=== PATIENT | female | born 1950 | race Caucasian/White ===

== ENCOUNTER 2017-02-03 07:48 | Observation (INO) | payer BC ==
[2017-02-03] VITALS (10 sets, daily range): BP systolic 131–196; BP diastolic 57–90; PULSE 81–104; RESP 16–18; TEMP 97.7–99.3; O2SAT 93–97
[~2017-02-03] VITALS: Ht 162.6 cm; Wt 91.0 kg
[2017-02-03] MEDS ORDERED: SODIUM CHLOR 0.9% 1000 ML INJ 1,000 ML IV SCH (08:07)
--- NOTE | 2017-02-03 08:10 | PD ---
HPI Chief Complaint: Abdominal Pain Time Seen by Provider: 08:03 Travel History International Travel<30 days: No Contact w/Intl Traveler<30days: No Traveled to known affect area: No History of Present Illness HPI 66-year-old female complains of pain in the right lower abdomen. It started about 3 hours ago while she was asleep. It's constant. She states is worse when she pushes in and then lets go. No fever nausea vomiting or diarrhea. Evidently a similar pain occurred within the last few weeks however it was even lower in the area of the right abdomen/upper thigh. No urinary complaints. She reports a history of a gallbladder calculus been no history of cholecystitis. She reports a diagnosis of gastritis as well having been made just recently. Severity moderate. Pain woke her up from sleep. PFSH Past Medical History Hx Anticoagulant Therapy: Yes (ASA DAILY) Cardiovascular Problems: Yes (BYPASS, HTN, CHOL) Diabetes: Yes ?: Not Social History Tobacco Use: No Allergies-Medications (Allergen,Severity, Reaction): Coded Allergies: Sulfa (Sulfonamide Antibiotics) (Verified Allergy, Severe, 02/03/17) Reported Meds & Prescriptions Reported Meds & Active Scripts Active Reported Amlodipine (Amlodipine Besylate) 2.5 Mg Tab 2.5 Mg PO DAILY Amoxicillin 500 Mg Cap 500 Mg PO DIRECTED PRN Omeprazole 40 Mg Cap 40 Mg PO DAILY Aspirin 325 Mg Tab 325 Mg PO DAILY Tramadol (Tramadol HCl) 50 Mg Tab 50 Mg PO QID PRN Losartan (Losartan Potassium) 100 Mg Tab 100 Mg PO DAILY Paxil (Paroxetine HCl) 30 Mg Tab 40 Mg PO HS Metformin (Metformin HCl) 1,000 Mg Tab 1,000 Mg PO HS With a meal Trilipix (Choline Fenofibrate DR) 135 Mg Capdr 135 Mg PO DAILY Carvedilol 25 Mg Tab 25 Mg PO BID Atorvastatin (Atorvastatin Calcium) 40 Mg Tab 40 Mg PO HS Gabapentin 600 Mg Tab 600 Mg PO TID Alprazolam 0.5 Mg Tab 0.5 Mg PO BID PRN Trazodone (Trazodone HCl) 100 Mg Tablet 100 Mg PO HS PRN Duloxetine DR (Duloxetine HCl) 60 Mg Capdr 60 Mg PO BID Review of Systems Except as stated in HPI: all other systems reviewed are Neg General / Constitutional: No: Fever Physical Exam Narrative GENERAL: 66-year-old female pleasant well-nourished well-developed mild distress secondary to pain SKIN: Focused skin assessment warm/dry. HEAD: Atraumatic. Normocephalic. EYES: Pupils equal and round. No scleral icterus. No injection or drainage. ENT: No nasal bleeding or discharge. Mucous membranes pink and moist. NECK: Trachea midline. No JVD. CARDIOVASCULAR: Regular rate and rhythm. No murmur appreciated. RESPIRATORY: No accessory muscle use. Clear to auscultation. Breath sounds equal bilaterally. GASTROINTESTINAL: Soft. There is tenderness in the right abdomen. MUSCULOSKELETAL: No obvious deformities. No clubbing. No cyanosis. No edema. NEUROLOGICAL: Awake and alert. No obvious cranial nerve deficits. Motor grossly within normal limits. Normal speech. PSYCHIATRIC: Appropriate mood and affect; insight and judgment normal. Data Data Last Documented VS Vital Signs Date Time Temp Pulse Resp B/P (MAP) Pulse Ox O2 Delivery O2 Flow Rate FiO2 02/03/17 09:15 81 16 149/60 (89) 95 Room Air 02/03/17 07:57 97.7 Vital signs reviewed Orders Orders Urinalysis - C+S If Indicated (02/03/17 07:55) Complete Blood Count With Diff (02/03/17 08:07) Comprehensive Metabolic Panel (02/03/17 08:07) Lipase (02/03/17 08:07) Ct Abd/Pel W Iv Contrast(Rout) (02/03/17 08:07) Iv Access Insert/Monitor (02/03/17 08:07) Ecg Monitoring (02/03/17 08:07) Oximetry (02/03/17 08:07) Ondansetron Inj (Zofran Inj) (02/03/17 08:15) Sodium Chlor 0.9% 1000 Ml Inj (Ns 1000 M (02/03/17 08:07) Sodium Chloride 0.9% Flush (Ns Flush) (02/03/17 08:15) Dicyclomine Inj (Bentyl Inj) (02/03/17 08:15) Al-Mag Hy-Si 40-40-4 Mg/Ml Liq (Mag-Al P (02/03/17 08:15) Lidocaine 2% Viscous (Xylocaine 2% Visco (02/03/17 08:15) Iohexol 350 Inj (Omnipaque 350 Inj) (02/03/17 09:39) Piperacil-Tazo 4.5 Gm Premix (Zosyn 4.5 (02/03/17 10:30) Sodium Chlor 0.9% 1000 Ml Inj (Ns 1000 M (02/03/17 10:30) Admit Order (Ed Use Only) (02/03/17 ) Equipment Records Supervisor / Telemetry NEHAL.Q8H (02/03/17 10:17) Vital Signs (Adult) Q4H (02/03/17 10:17) Diet Npo (02/03/17 Lunch) Activity Oob With Assistance (02/03/17 10:17) Notify Dr: Other (02/03/17 10:17) Morphine Inj (Morphine Inj) (02/03/17 10:30) Ondansetron Inj (Zofran Inj) (02/03/17 10:30) Labs Laboratory Tests Test 02/03/17 08:54 White Blood Count 8.4 TH/MM3 Red Blood Count 3.99 MIL/MM3 Hemoglobin 11.6 GM/DL Hematocrit 35.4 % Mean Corpuscular Volume 88.6 FL Mean Corpuscular Hemoglobin 29.0 PG Mean Corpuscular Hemoglobin Concent 32.8 % Red Cell Distribution Width 14.0 % Platelet Count 256 TH/MM3 Mean Platelet Volume 8.4 FL Neutrophils (%) (Auto) 79.4 % Lymphocytes (%) (Auto) 15.7 % Monocytes (%) (Auto) 3.5 % Eosinophils (%) (Auto) 1.0 % Basophils (%) (Auto) 0.4 % Neutrophils # (Auto) 6.7 TH/MM3 Lymphocytes # (Auto) 1.3 TH/MM3 Monocytes # (Auto) 0.3 TH/MM3 Eosinophils # (Auto) 0.1 TH/MM3 Basophils # (Auto) 0.0 TH/MM3 CBC Comment DIFF FINAL Differential Comment Blood Urea Nitrogen 16 MG/DL Creatinine 0.88 MG/DL Random Glucose 252 MG/DL Total Protein 7.1 GM/DL Albumin 3.2 GM/DL Calcium Level 8.7 MG/DL Alkaline Phosphatase 40 U/L Aspartate Amino Transf (AST/SGOT) 12 U/L Alanine Aminotransferase (ALT/SGPT) 17 U/L Total Bilirubin 0.4 MG/DL Sodium Level 135 MEQ/L Potassium Level 3.9 MEQ/L Chloride Level 99 MEQ/L Carbon Dioxide Level 28.4 MEQ/L Anion Gap 8 MEQ/L Estimat Glomerular Filtration Rate 65 ML/MIN Lipase 88 U/L MDM Medical Decision Making Medical Screen Exam Complete: Yes Emergency Medical Condition: Yes Differential Diagnosis Gastritis, pancreatitis, appendicitis, acute cholecystitis, ascending cholangitis, AAA, perforated viscous, mesenteric ischemia, hepatitis, cystitis, hydronephrosis/hydroureter/nephroureter calculus, mesenteric adenitis, biliary colic Narrative Course CBC & BMP Diagram 02/03/17 08:54 Total Protein 7.1, Albumin 3.2 L, Calcium Level 8.7, Alkaline Phosphatase 40 L, Aspartate Amino Transf (AST/SGOT) 12 L, Alanine Aminotransferase (ALT/SGPT) 17, Total Bilirubin 0.4 Lipase normal Last 24 hours Impressions Abdomen/Pelvis CT 02/03/17 0807 Signed Impressions: Service Date/Time: Friday, February 03, 2017 09:33 - CONCLUSION: 1. Mild distention of the appendix with subtle periappendiceal stranding which may represent early appendicitis. 2. 2.7 cm low density lesion in the left hepatic lobe. Further characterization with outpatient MRI should be considered. 3. Mild hepatic steatosis. 4. No other significant abnormalities. Vince Kern MD Findings considered consistent with acute appendicitis. Case discussed with Dr. Arora for general surgery who will take the patient to the OR. The abdomen is tender on the right side. Pt hemodynamically normal. IV fluids, nothing by mouth status and Zosyn started. Morphine 6mg added at 10:25AM. Diagnosis Primary Impression: Acute appendicitis Qualified Codes: K35.80 - Unspecified acute appendicitis Admitting Information Admitting Physician Requests: Observation Bunny Almodovar MD Feb 03, 2017 08:10
[2017-02-03] MEDS ORDERED: SODIUM CHLORIDE 0.9% FLUSH 10 ML FLUSH IV FLUSH PRN (08:15)
[2017-02-03] MEDS ORDERED: DICYCLOMINE HCL 20 MG/2 ML VIAL IM ONE (08:15)
[2017-02-03] MEDS ORDERED: ONDANSETRON HCL 4 MG/2 ML VIAL IVP ONE (08:15)
[2017-02-03] MEDS ORDERED: LIDOCAINE VISCOUS 2% SOLN 15 ML UDC PO ONE (08:15)
[2017-02-03] MEDS ORDERED: ALUMINUM/MAGNESIUM/SIMETH 30 ML CUP PO ONE (08:15)
[2017-02-03] MEDS ORDERED: ALPR0.5T3 PO (08:27)
[2017-02-03] MEDS ORDERED: DULO1CAP3 PO (08:27)
[2017-02-03] MEDS ORDERED: TRAZ100T10 PO (08:27)
[2017-02-03] MEDS ORDERED: GABA600T PO (08:45)
[2017-02-03] MEDS ORDERED: TRIL135C PO (09:00)
[2017-02-03] MEDS ORDERED: METF1000 PO (09:00)
[2017-02-03] MEDS ORDERED: ATOR40TA16 PO (09:00)
[2017-02-03] MEDS ORDERED: PAXI30TA7 PO (09:00)
[2017-02-03] MEDS ORDERED: CARV25TA PO (09:00)
[2017-02-03 09:02] LABS: AUTOMATED NEUTROPHIL # 6.7 TH/MM3 (1.8-7.7); BASOPHIL % 0.4 % (0.0-2.0); EOSINOPHIL # 0.1 TH/MM3 (0-0.4); HEMATOCRIT 35.4 % (35.0-46.0); LYMPH % 15.7 % (9.0-44.0); LYMPHOCYTE # 1.3 TH/MM3 (1.0-4.8); MEAN CELL VOLUME 88.6 FL (80.0-100.0); MEAN CORPUSCULAR HGB CONC 32.8 % (32.0-36.0); MONO % 3.5 % (0.0-8.0); NEUT % 79.4 % (16.0-70.0); PLATELET COUNT 256 TH/MM3 (150-450); RED BLOOD COUNT 3.99 MIL/MM3 (4.00-5.30); WHITE BLOOD COUNT 8.4 TH/MM3 (4.0-11.0)
[2017-02-03 09:03] LABS: HEMO FLAGS DIFF FINAL
[2017-02-03 09:13] LABS: CHLORIDE 99 MEQ/L (98-107); POTASSIUM 3.9 MEQ/L (3.5-5.1); SODIUM (NA) 135 MEQ/L (136-145)
[2017-02-03 09:17] LABS: ANION GAP 8 MEQ/L (5-15); BICARBONATE 28.4 MEQ/L (21.0-32.0); BLOOD UREA NITROGEN 16 MG/DL (7-18)
[2017-02-03 09:19] LABS: ALT (GPT) 17 U/L (10-53); AST (GOT) 12 U/L (15-37)
[2017-02-03] MEDS ORDERED: AMOX500C PO (09:19)
[2017-02-03] MEDS ORDERED: OMEP40CA2 PO (09:19)
[2017-02-03] MEDS ORDERED: LOSA100T PO (09:19)
[2017-02-03] MEDS ORDERED: ASPI-183 PO (09:19)
[2017-02-03] MEDS ORDERED: TRAM50TA PO (09:19)
[2017-02-03 09:20] LABS: GLOMERULAR FILTRATION RATE 65 ML/MIN (>89)
[2017-02-03] MEDS ORDERED: AMLO2.5T PO (09:20)
[2017-02-03 09:21] LABS: TOTAL BILIRUBIN ADULT 0.4 MG/DL (0.2-1.0)
[2017-02-03 09:22] LABS: ALKALINE PHOSPHATASE 40 U/L (45-117)
[2017-02-03] MEDS ORDERED: IOHEXOL 350 MG/ML 10 ML VIAL (for RAD DIAG) IVCONTRAST ONE (09:39)
--- NOTE | 2017-02-03 09:57 | RADRPT ---
EXAM DATE/TIME: 02/03/2017 09:33 [facility] COMPARISON: No previous studies available for comparison. INDICATIONS : Right lower quadrant pain. IV CONTRAST: 95 cc Omnipaque 350 (iohexol) IV ORAL CONTRAST: No oral contrast ingested. RADIATION DOSE: 21.93 CTDIvol (mGy) MEDICAL HISTORY : Hypertension. Cardiovascular disease Gastroesophageal reflux disease.Diabetes. SURGICAL HISTORY : CABG Coronary artery stent. section. ENCOUNTER: Initial ACUITY: 1 day PAIN SCALE: 8/10 LOCATION: Right lower quadrant TECHNIQUE: Volumetric scanning of the abdomen and pelvis was performed. Using automated exposure control and ad justment of the mA and/or kV according to patient size, radiation dose was kept as low as reasonably achievable to obtain optimal diagnostic quality images. DICOM format image data is available electro nically for review and comparison. FINDINGS: LOWER LUNGS: The visualized lower lungs are clear. LIVER: The liver is diffusely hypodense. A focal hypodense lesion is identified in the lateral segment left hepatic lobe adjacent to the falciform ligament. It measures 2.7 cm in size. No other focal abnormali ties are noted. There is no evidence of biliary duct dilatation. Gallbladder appears normal. SPLEEN: Normal size without lesion. PANCREAS: Within normal limits. KIDNEYS: Normal in size and shape. There is no mass, stone or hydronephrosis. ADRENAL GLANDS: Within normal limits. VASCULAR: There is no aortic aneurysm. BOWEL/MESENTERY: The appendix measures 9 mm in thickness and there is subtle periappendiceal stranding. The stomach, s mall bowel, and colon otherwise demonstrate no acute abnormality. There is no free intraperitoneal a ir or fluid. ABDOMINAL WALL: Within normal limits. RETROPERITONEUM: There is no lymphadenopathy. BLADDER: No wall thickening or mass. REPRODUCTIVE: Within normal limits. INGUINAL: There is no lymphadenopathy or hernia. MUSCULOSKELETAL: Within normal limits for patient age. CONCLUSION: 1. Mild distention of the appendix with subtle periappendiceal stranding which may represent early ap pendicitis. 2. 2.7 cm low density lesion in the left hepatic lobe. Further characterization with outpatient MRI s hould be considered. 3. Mild hepatic steatosis. 4. No other significant abnormalities. Vince Kern MD on February 03, 2017 at 9:48 Board Certified Radiologist. This report was verified electronically.
[2017-02-03] MEDS ORDERED: MORPHINE SULFATE 8 MG/ML INJ IV PUSH ONE (10:30)
[2017-02-03] MEDS ORDERED: ONDANSETRON HCL 4 MG/2 ML VIAL IV PUSH ONE (10:30)
[2017-02-03] MEDS ORDERED: PIPERACIL-TAZO 4.5 GM PREMIX 100 ML IV ONE (10:30)
[2017-02-03 10:36] LABS: BLOOD, URINE NEG (NEG); GLUCOSE,URINE 250 mg/dL (NEG); KETONE, URINE NEG (NEG); NITRITE,URINE NEG (NEG)
[2017-02-03 10:43] LABS: METHOD OF COLLECTION CLEAN CATCH; URINE COLOR YELLOW (YELLW/STRAW)
[2017-02-03 10:44] LABS: COMMENT (UR) CULTURE INDICATED; CULTURE IF INDICATED CULTURE INDICATED; SQUAMOUS EPITHELIAL CELL URINE 0-5 /hpf (0-5)
[2017-02-03] MEDS: SODIUM CHLOR 0.9% 1000 ML INJ 1,000 ML IV SCH ×2 (10:52→17:31)
[2017-02-03] MEDS ORDERED: BUPIVACAINE/EPINEPHRINE 0.5% PF 30 ML VIAL ONE (12:07)
[2017-02-03] MEDS ORDERED: fentaNYL CITRATE 250 MCG/5 ML AMP ONE (12:46)
[2017-02-03] MEDS ORDERED: MIDAZOLAM HCL 2 MG/2 ML VIAL ONE (12:58)
[2017-02-03] MEDS ORDERED: METOPROLOL TARTRATE 25 MG TAB PO PRN (13:30)
[2017-02-03] MEDS ORDERED: SODIUM CHLORID 0.9% 500 ML IV PRN (13:30)
[2017-02-03] MEDS ORDERED: CHLORHEXIDINE GLUCONATE 2 % 1 PACK (2 CLOTHS) TOPICAL PRN (13:30)
[2017-02-03] MEDS ORDERED: POVIDONE IODINE 5% (ANTISEPSIS KIT) 4 APPLICATIONS EACH NARE PRN (13:30)
[2017-02-03] MEDS ORDERED: LACTATED RINGER'S 1000 ML IV PRN (13:30)
[2017-02-03] MEDS ORDERED: INSULIN HUMAN REGULAR 1,000 UNITS/10 ML VIAL SQ PRN (13:30)
--- NOTE | 2017-02-03 14:34 | HHI.PR ---
cc: Cj Arora MD Immediate Post Op Note Procedure Date: Feb 03, 2017 Pre Op Diagnosis: (1) Acute appendicitis Post Op Diagnosis: (1) Hernia, umbilical (2) S/P laparoscopic appendectomy (3) Acute appendicitis Surgeon: Cj Arora Official Court Reporter(s): please refer to OR records Procedure: lap appy repair of UH Findings: Inflamed appendix Umbilical hernia No incisional hernia Complications: none Specimen(s) removed: appendix Estimated blood loss: Minimum Anesthesia: General Drains: None IVF Patient to: PACU Patient Condition: Good Implant/Devices: SEE IMPLANT LOG (if applicable) Date/Time of Procedure: SEE SURGICAL CARE RECORD Cj Arora MD Feb 03, 2017 14:34
[2017-02-03] MEDS ORDERED: NORC5TAB PO (14:36)
--- NOTE | 2017-02-03 15:18 | MH ---
cc: RAMIRO CHÁVEZ M.D. DATE OF ADMISSION: 02/03/2017 REASON FOR ADMISSION: Acute appendicitis. HISTORY OF PRESENT ILLNESS: This is a pleasant 66-year-old female who came into the emergency room after flying in from [place] yesterday. She developed periumbilical pain and then right lower quadrant pain. She came into the emergency room where the ER evaluated her and felt she may have appendicitis. This was confirmed with radiologic imaging and surgery was consulted. PAST MEDICAL HISTORY 1. Significant for open heart surgery x 2 years ago she had a some cardiac testing about a month and a half ago and she said everything was okay. She is here on vacation. 2. Hypertension. 3. She takes an aspirin a day. 4. She has had some stents placed she said in her lower extremities for peripheral vascular disease. 5. She has had a section in the past. REVIEW OF SYSTEMS: Cardiovascular effects in her review of systems as above. She has had some mild COPD. mild chest discomfort she relates to stress No shortness of breath No urinary symptoms Reflux disease. She had a section years ago. She has some diffuse arthritis. Diabetic. Hypertensive. She had some mild nausea associated with this pain. MEDICATIONS: All within the computer system Her medications as an outpatient include: 1. Amlodipine. 2. Amoxicillin as needed when she has dental work. 3. Some aspirin. 4. Atorvastatin. 5. Carvedilol. 6. Fenofibrate. 7. Doxepin. 8. Gabapentin. 9. [place]. 10. Losartan. 11. Metformin. 12. Omeprazole. 13. Paxil. 14. Tramadol. 15. Trazodone. ALLERGIES: SHE IS APPARENTLY ALLERGIC TO SULFA. PHYSICAL EXAMINATION: GENERAL: On physical exam she is a pleasant lady slightly obese with mild distress. NECK: The neck is supple. CHEST: Clear. HEART: Regular rate. ABDOMEN: Obese. Surgical scar in the midline. She thinks she has an incisional hernia but she has an umbilical hernia. She has exquisite tenderness in the right lower quadrant with rebound and guarding. NEUROLOGICAL EXAMINATION: She is alert, oriented and obviously uncomfortable. EXTREMITIES: She is moving all extremities well. LABORATORY DATA: She had a white count 8, hemoglobin and hematocrit of 11 and 35. Chemistries essentially normal with a sugar of 252. Her lipase is 84. Liver function tests are essentially normal. Urinalysis showed a small amount of esterase. RADIOLOGICAL STUDIES: CT scan of the abdomen shows appendicitis. ASSESSMENT: A 66-year-old female visiting from [place] with coronary artery disease status post four-vessel bypass 2-1/2 years ago with recent testing about a [id number]-half ago which she reports okay with appendicitis. PLAN: Immediate laparoscopic appendectomy. This was explained to the patient and the family at the bedside. They appear to understand. Will proceed. Talked to anesthesia as well. MD TEVIN Donnelly/EMILY /2:58 PM /3:12 PM MTDD
--- NOTE | 2017-02-03 15:24 | MP ---
cc: RAMIRO ARORA M.D. DATE OF SURGERY: 02/03/2017. PREOPERATIVE DIAGNOSIS: Acute appendicitis POSTOPERATIVE DIAGNOSIS: 1. Acute appendicitis. 2. Umbilical hernia. OPERATIVE PROCEDURE PERFORMED: 1. Laparoscopic appendectomy. 2. Repair of umbilical hernia. SURGEON: Ramiro Arora MD. ANESTHESIA: General. INDICATIONS FOR THE PROCEDURE: This is a 66-year-old female who is visiting from [place]. She developed right lower quadrant pain and came to the emergency room and was found to have acute appendicitis on clinical exam and confirmed with radiologic imaging. Plans were made for the above. FINDINGS: Intraoperatively it was found that she had an umbilical hernia as well, and this was repaired. DESCRIPTION OF THE PROCEDURE IN DETAIL: The patient was taken to the operating room and placed in the supine position. After anesthesia, her abdomen was prepped with Betadine. She had been given preoperative antibiotics. Time-out was done. We made an incision just above the umbilicus and dissected down through the subcutaneous tissue identifying an umbilical hernia that measured a little less than a centimeter. We were able to place a trocar into the umbilical hernia. The abdomen was insufflated to 15 mmHg. Two other working ports were placed, one down in the midline above the pubic tubercle and the second one in-between the two previously placed ports. The appendix could be seen and it was obviously inflamed slightly retrocecal. It was elevated up in order to visualize it. The appendiceal mesentery and artery were cauterized with the harmonic scalpel. After this was done, two Endo ties were then placed around the base of the appendix and the appendix was amputated and placed in an EndoCatch and pulled out through the umbilical incision and passed off the field. We then irrigated copiously. No other gross abnormality was seen. The trocars were then removed. The umbilical hernia was then repaired using interrupted #0 Vicryl suture. The skin was closed with a 4-0 Vicryl. Steri-Strips were applied. Sterile bandage was applied. The patient tolerated the procedure well and had no immediate postoperative complications. MD TEVIN Donnelly/EMILY /2:55 PM 3:21 PM
[2017-02-03] MEDS: ACETAMINOPHEN/HYDROcodone 325 MG/5 MG TAB PO PRN ×2 (16:04→20:19)
[2017-02-03] MEDS ORDERED: traZODone HCL 100 MG TAB PO SCH (21:00)
[2017-02-03] MEDS: ALPRAZolam 0.5 MG TAB PO SCH (21:53)
[2017-02-03] MEDS: ACETAMINOPHEN/HYDROcodone 325 MG/10 MG TAB PO PRN (21:54)
[2017-02-04] VITALS: BP 131/75; PULSE 98; RESP 17; TEMP 98.9; O2SAT 95
[2017-02-04 00:36] VITALS: PULSE 104
[2017-02-04] MEDS: ACETAMINOPHEN/HYDROcodone 325 MG/10 MG TAB PO PRN ×3 (02:09→08:55)
[2017-02-04] MEDS: SODIUM CHLOR 0.9% 1000 ML INJ 1,000 ML IV SCH ×2 (02:11→07:57)
[2017-02-04 04:00] VITALS: BP 128/77; PULSE 92; RESP 18; TEMP 97.9; O2SAT 96
--- NOTE | 2017-02-04 07:40 | HHI.DS ---
Discharge Summary Admission Date Feb 03, 2017 at 10:19 Admitting Diagnosis Acute Appendicitis (1) S/P laparoscopic appendectomy ICD Codes: Z90.49 - Acquired absence of other specified parts of digestive tract Diagnosis: Principal Status: Acute (2) Acute appendicitis ICD Codes: K35.80 - Unspecified acute appendicitis Diagnosis: Principal Status: Acute (3) Hernia, umbilical ICD Codes: K42.9 - Umbilical hernia without obstruction or gangrene Status: Chronic Procedures Laparoscopic appendectomy Brief History Patient flew in from [place] She developed right lower quadrant pain Came to the emergency room was diagnosed with appendicitis Underwent urgent laparoscopic appendectomy Spent the night to recover The next morning she felt better she wanted to go home after breakfast CBC/BMP: 02/03/17 0854 02/03/17 0854 Significant Findings Laboratory Tests Test 02/03/17 08:54 02/03/17 10:30 Red Blood Count 3.99 MIL/MM3 (4.00-5.30) Neutrophils (%) (Auto) 79.4 % (16.0-70.0) Random Glucose 252 MG/DL (74-106) Albumin 3.2 GM/DL (3.4-5.0) Alkaline Phosphatase 40 U/L (45-117) Aspartate Amino Transf (AST/SGOT) 12 U/L (15-37) Sodium Level 135 MEQ/L (136-145) Estimat Glomerular Filtration Rate 65 ML/MIN (>89) Urine Glucose (UA) 250 mg/dL (NEG) Urine Leukocyte Esterase SMALL (NEG) Urine WBC 9-14 /hpf (0-5) Urine WBC Clumps OCC (NONE) Imaging Last Impressions Abdomen/Pelvis CT 02/03/17 0807 Signed Impressions: Service Date/Time: Friday, February 03, 2017 09:33 - CONCLUSION: 1. Mild distention of the appendix with subtle periappendiceal stranding which may represent early appendicitis. 2. 2.7 cm low density lesion in the left hepatic lobe. Further characterization with outpatient MRI should be considered. 3. Mild hepatic steatosis. 4. No other significant abnormalities. Vince Kern MD Hospital Course Patient was admitted to the emergency room She underwent urgent laparoscopic appendectomy She did well after spending a night to recover from the anesthesia Discharged in the morning after she had breakfast Pt Condition on Discharge: Good Discharge Disposition: Discharge Home Discharge Instructions DIET: Follow Instructions for: Heart Healthy Diet Activities you can perform: Shower Only-No Bath, See Additionl Instruction Activities to Avoid: Concussion Sports, Contact Sports, Lifting/Bending, Weight Bearing, Prolonged Standing, Strenuous Activity, Bathing, Driving Follow up Referrals: Surgical - 3-5 Days with Ramiro Chávez MD New Medications: Hydrocodone-Acetaminophen ([place]) 5 Mg-325 Mg Tab 1 TAB PO Q6H PRN for PAIN, #30 TAB 0 Refills Continued Medications: Alprazolam (Alprazolam) 0.5 Mg Tab 0.5 MG PO BID PRN for ANXIETY, TAB 0 Refills Amlodipine (Amlodipine) 2.5 Mg Tab 2.5 MG PO DAILY for Blood Pressure Management, #30 TAB 0 Refills Amoxicillin (Amoxicillin) 500 Mg Cap 500 MG PO DIRECTED PRN for dentist, CAP 0 Refills Aspirin (Aspirin) 325 Mg Tab 325 MG PO DAILY, #30 TAB 0 Refills Atorvastatin (Atorvastatin) 40 Mg Tab 40 MG PO HS for Cholesterol Management, #30 TAB 0 Refills Carvedilol (Carvedilol) 25 Mg Tab 25 MG PO BID, #60 TAB [address] (Trilipix) 135 Mg Capdr 135 MG PO DAILY, #30 CAP [address] (Duloxetine DR) 60 Mg Capdr 60 MG PO BID, #30 CAP 0 Refills Gabapentin (Gabapentin) 600 Mg Tab 600 MG PO TID, #90 TAB 0 Refills Losartan (Losartan) 100 Mg Tab 100 MG PO DAILY for Blood Pressure Management, #30 TAB 0 Refills Metformin (Metformin) 1,000 Mg Tab 1000 MG PO HS for Blood Sugar Management, #30 TAB 0 Refills With a meal Omeprazole (Omeprazole) 40 Mg Cap 40 MG PO DAILY, #30 CAP 0 Refills Paroxetine (Paxil) 30 Mg Tab 40 MG PO HS, #30 TAB 0 Refills Tramadol (Tramadol) 50 Mg Tab 50 MG PO QID PRN for PAIN SCALE 1 TO 10, TAB 0 Refills Trazodone (Trazodone) 100 Mg Tablet 100 MG PO HS PRN for SLEEP, #30 TAB 0 Refills Additional Information Last Impressions Abdomen/Pelvis CT 02/03/17 0807 Signed Impressions: Service Date/Time: Friday, February 03, 2017 09:33 - CONCLUSION: 1. Mild distention of the appendix with subtle periappendiceal stranding which may represent early appendicitis. 2. 2.7 cm low density lesion in the left hepatic lobe. Further characterization with outpatient MRI should be considered. 3. Mild hepatic steatosis. 4. No other significant abnormalities. Vince Kern MD Attending Statement NOTE FOR SURGICAL ATTENDING, DR. RAMIRO CHÁVEZ I attest that I had a [id number] encounter with the patient on the same day, and personally performed and documented my assessment and findings in the medical record. The following services were provided during this hospital visit: Chart data review, vital sign assessments/reviewing monitor data Review of consultations notes if present. Medication orders/review and/or management Ordering and/or reviewing lab tests Ordering and/or interpreting/reviewing x-rays and/or diagnostic studies Care of the patient and discussion of the patient with the care team Documentation time To help prompt me to consider important information that might be impacting today's encounter and assessment, information from prior notes written by myself or my colleagues may have been "brought forward/copy and pasted" into today's note. Ramiro Chávez MD Feb 04, 2017 07:40
[2017-02-04] MEDS: ALPRAZolam 0.5 MG TAB PO SCH (07:51)
[2017-02-04 08:00] VITALS: BP 111/54; PULSE 94; RESP 18; TEMP 97.5; O2SAT 94
--- NOTE | 2017-02-04 19:06 | EKG ---
Date Performed: 02/03/2017 Time Performed: 12:31:44 PTAGE: 66 years EKG: Sinus rhythm INDETERMINATE AXIS LOW QRS VOLTAGE IN PRECORDIAL LEADS PATTERN CONSISTENT WITH PULMONARY DISEASE ABN ORMAL ECG NO PREVIOUS TRACING DOCTOR: Daysi Sánchez Interpretating Date/Time 02/04/2017 19:05:16
== END 2017-02-04 09:50 | disposition home or self-care (01) ==
LOC: PHED 07:48 → PHEDA 10:19 → PH3B 11:42
PROVIDERS: ADMIT Surgery; ATTEND Surgery
DX: K35.3 Acute appendicitis with localized peritonitis (principal); K42.9 Umbilical hernia without obstruction or gangrene; K76.0 Fatty (change of) liver, not elsewhere classified; R10.31 Right lower quadrant pain; K29.70 Gastritis, unspecified, without bleeding; I10 Essential (primary) hypertension; E11.51 Type 2 diabetes mellitus with diabetic peripheral angiopathy without gangrene
CPT/HCPCS: 00752; 44970; 49652; 74177; 80053; 81001; 83690; 85025; 87086; 88304; 93005; 96361; 96365; 96372; 96375; 99285; G0378; J0500; J2250; J2270; J2405; J2543; J3010; J7030; J7120; Q9967